=== PATIENT | female | born 1985 | race Two or more races ===

== ENCOUNTER 2022-08-16 23:20 | Emergency (ER) | payer BC ==
[~2022-08-16] VITALS: Ht 167.6 cm; Wt 70.5 kg
[2022-08-16 23:21] VITALS: BP 127/92
== END 2022-08-17 05:52 | disposition left against medical advice (07) ==
LOC: M ED 23:20
DX: Z53.21 Procedure and treatment not carried out due to patient leaving prior to being seen by health care provider (principal)

== ENCOUNTER → 2023-01-09 | Outpatient (CLI) | payer BC | LOC: M OUTALCOH 09:26 | PROVIDERS: ATTEND Psychiatry & Neurology Psychiatry | DX: Z13.39 Encounter for screening examination for other mental health and behavioral disorders (principal) ==

== ENCOUNTER 2023-01-17 11:56 | Outpatient (RCR) | payer BC | END 2023-01-25 | LOC: M OUTALCOH 11:56 | PROVIDERS: ATTEND Psychiatry & Neurology Psychiatry | DX: F10.20 Alcohol dependence, uncomplicated (principal) ==

== ENCOUNTER 2023-05-10 07:46 | Emergency (ER) | payer BC ==
[~2023-05-10] VITALS: Ht 167.6 cm; Wt 68.8 kg
[2023-05-10] MEDS ORDERED: NS 1,000 ML IV ONE (08:15)
[2023-05-10] MEDS ORDERED: ONDANSETRON 4MG 2ML VIAL IV ONE (08:15)
[2023-05-10] MEDS ORDERED: LORazepam 2 MG/ML 1ML VIAL IV STA (08:17)
[2023-05-10 08:38] LABS: HEMOGLOBIN 15.1 g/dl (12.0-15.5); MEAN CORPUSCULAR HEMOGLOBIN 31.5 pg (27.0-33.0); MEAN CORPUSCULAR HGB CONC 35.1 g/dl (32.0-36.5); MEAN CORPUSCULAR VOLUME 89.6 fl (80.0-96.0); PLATELET COUNT, AUTOMATED 344 10^3/uL (150-450)
[2023-05-10] MEDS ORDERED: LORazepam 2 MG TAB PO PRN (08:55)
[2023-05-10 09:00] LABS: ETHYL ALCOHOL (ETHANOL) 0.056 % (0.000-0.010)
[2023-05-10] MEDS ORDERED: FOLIC ACID 1MG TAB PO SCH (09:00)
[2023-05-10] MEDS ORDERED: THIAMINE 100 MG TAB PO SCH (09:00)
[2023-05-10] MEDS ORDERED: MULTIVITAMINS/MINERALS THERAP 1 TAB PO SCH (09:00)
[2023-05-10 09:02] LABS: ACETAMINOPHEN LEVEL < 2.0 UG/ML (10.0-20.0); ALBUMIN 4.2 G/DL (3.2-5.2); ALKALINE PHOSPHATASE 104 U/L (46-116); ALT/SGPT 117 U/L (7.0-40); AST/SGOT 96 U/L (<34); BILIRUBIN,DIRECT 0.4 MG/DL (<0.4); BLOOD UREA NITROGEN 9 MG/DL (9-23); CALCIUM LEVEL 9.1 MG/DL (8.5-10.1); CARBON DIOXIDE LEVEL 20 MMOL/L (20-31); CHLORIDE LEVEL 104 MMOL/L (98-107); CREATININE FOR GFR 0.69 MG/DL (0.55-1.30); GLOMERULAR FILTRATION RATE > 60.0 (>60); GLUCOSE, FASTING 111 MG/DL (60-100); POTASSIUM SERUM 3.6 MMOL/L (3.5-5.1); SALICYLATE LEVEL < 3.0 MG/DL (<30); SODIUM LEVEL 143 MMOL/L (136-145); TOTAL PROTEIN 7.2 G/DL (5.7-8.2)
[2023-05-10 09:04] LABS: THYROID STIMULATING HORMONE 0.693 uIU/ML (0.55-4.78)
[2023-05-10 09:05] LABS: HCG, SERUM QUALITATIVE NEGATIVE (NEGATIVE)
[2023-05-10 10:20] LABS: BARBITURATES URINE NEGATIVE (NEGATIVE); COCAINE METABOLITE URINE NEGATIVE (NEGATIVE); METHADONE URINE NEGATIVE (NEGATIVE); OPIATES URINE NEGATIVE (NEGATIVE); PHENCYCLIDINE URINE NEGATIVE (NEGATIVE)
[2023-05-10 10:21] LABS: AMPHETAMINES LEVEL URINE NEGATIVE (NEGATIVE); BENZODIAZEPINES URINE NEGATIVE (NEGATIVE)
[2023-05-10 10:24] LABS: CANNABINOIDS URINE POSITIVE (NEGATIVE)
[2023-05-10 13:30] VITALS: BP 121/78; TEMP 98.2; O2SAT 98
[2023-05-10] MEDS ORDERED: OXAZ10CA3 PO (15:06)
== END 2023-05-10 13:45 | disposition home or self-care (01) ==
LOC: M ED 07:46
DX: F10.139 Alcohol abuse with withdrawal, unspecified (principal); F17.200 Nicotine dependence, unspecified, uncomplicated
CPT/HCPCS: 80048; 80076; 80143; 80307; 82077; 84443; 84703; 85027; 93041; 94760; 96361; 96374; 96375; 99285; J2060; J2405